=== PATIENT | female | born 1980 | race Two or more races ===

== ENCOUNTER 2023-09-25 17:09 | Inpatient (IN) | payer OTHER ==
[~2023-09-25] VITALS: Ht 162.6 cm; Wt 68.2 kg
[2023-09-25 18:06] LABS: COVID AG,FIA SOURCE NASAL SWAB
[2023-09-25] MEDS ORDERED: LORazepam 2 MG TABLET PO PRN (18:15)
[2023-09-25] MEDS ORDERED: ZOLPIDEM TARTRATE 10 MG TABLET PO PRN (18:15)
[2023-09-25] MEDS ORDERED: HALOPERIDOL 5 MG TABLET PO PRN (18:15)
[2023-09-25 18:18] LABS: BASOPHILS % (AUTO) 1.1 % (0.0-2.0); EOSINOPHILS % (AUTO) 0.3 % (1.0-6.0); HEMATOCRIT 40.5 % (36-46); HEMOGLOBIN 13.9 g/dL (12.0-16.0); LYMPHOCYTES # (AUTO) 1.2 K/uL (1.0-4.8); LYMPHOCYTES % (AUTO) 21.2 % (22.0-44.0); MEAN CORPUSCULAR HEMOGLOBIN 32.3 pg (26.0-34.0); MEAN CORPUSCULAR HGB CONC 34.4 G/dL (31.0-37.0); MEAN CORPUSCULAR VOLUME 94 fL (80-100); MONOCYTES # (AUTO) 0.6 K/uL (0.1-1.0); MONOCYTES % (AUTO) 11.7 % (2.0-9.0); NEUTROPHILS # (AUTO) 3.6 K/uL (1.8-7.7); NEUTROPHILS % (AUTO) 65.7 % (40.0-70.0); PLATELET COUNT (AUTO) 236 K/uL (150-450); RED BLOOD CELL COUNT(AUTO) 4.31 MIL/uL (4.00-5.20); RED CELL DISTRIBUTION WIDTH 14.2 % (11.5-14.5); WHITE BLOOD COUNT (AUTO) 5.5 K/uL (4.5-11.0)
[2023-09-25 18:30] LABS: ANION GAP 15 mmol/L (8-16); CALCIUM, TOTAL 9.2 mg/dL (8.8-10.5); CARBON DIOXIDE 24 mmol/L (22-29); CHLORIDE 108 mmol/L (98-107); CREATININE 0.71 mg/dL (0.60-1.30); GLOMERULAR FILTR. RATE CALC > 60 mL/min (>60); GLUCOSE,RANDOM 108 mg/dL (70-110); SODIUM SERUM 147 mmol/L (136-145); UREA NITROGEN, BLOOD 12 mg/dL (7-18)
[2023-09-25 18:35] LABS: ALANINE AMINOTRANSFERASE 20 U/L (12-78); ALBUMIN 4.2 g/dL (3.4-5.0); ALKALINE PHOSPHATASE 65 U/L (46-116); ASPARTATE AMINOTRANSFERASE 19 U/L (15-37); BILIRUBIN,TOTAL 0.6 mg/dL (0.1-1.0)
[2023-09-25 18:35] LABS: SARS-COV2 (COVID) ANTIGEN,FIA Positive (Negative)
[2023-09-25 19:05] LABS: ALCOHOL, BLOOD (SERUM) < 3 mg/dL (0-10)
[2023-09-25 20:25] VITALS: BP 113/79; PULSE 102; RESP 18; TEMP 98.8
[2023-09-26] MEDS ORDERED: DEXTROSE 5%-0.45% SODIUM CHL 1,000 ML IV ONE (00:15)
[2023-09-26 03:41] VITALS: BP 123/80; PULSE 103; RESP 18; TEMP 97.6
[2023-09-26] MEDS ORDERED: INFLUENZA VIRUS VACCINE QVS 2023-24 (6MO+)/PF 60 MCG/0.5 ML SYRINGE IM. ONE (06:45)
[2023-09-26] MEDS ORDERED: ACETAMINOPHEN 325 MG TABLET PO PRN (07:30)
[2023-09-26] MEDS ORDERED: ZOLPIDEM TARTRATE 5 MG TABLET PO PRN (07:30)
[2023-09-26] MEDS ORDERED: BISACODYL 10 MG RECTAL RECTAL SUPPOSITORY PR PRN (07:30)
[2023-09-26] MEDS ORDERED: MAGNESIUM HYDROXIDE SUSPENSION 30 ML UDCUP PO PRN (07:30)
[2023-09-26] MEDS ORDERED: ONDANSETRON HCL 4 MG/2 ML VIAL IVP PRN (07:30)
[2023-09-26] MEDS: HEPARIN SODIUM,PORCINE 5,000 UNITS/ML VIAL SQ SCH ×3 (08:00→23:48)
[2023-09-26] MEDS: PANTOPRAZOLE SODIUM 40 MG DR TABLET PO SCH (09:00)
[2023-09-26] MEDS: DOCUSATE SODIUM 100 MG CAPSULE PO SCH ×2 (09:00→20:21)
[2023-09-26] MEDS: AZITHROMYCIN 500 MG TABLET PO SCH (10:15)
[2023-09-26 19:40] VITALS: BP 114/69; PULSE 96; RESP 18; TEMP 98.1
[2023-09-26] MEDS: RisperiDONE 1 MG TABLET PO SCH (20:21)
[2023-09-26 20:50] LABS: ALCOHOL, URINE DRUG SCREEN NEGATIVE (NEGATIVE); AMPHET/METH SCREEN,URINE NEGATIVE (NEGATIVE); BARBITURATE SCREEN, URINE NEGATIVE (NEGATIVE); BENZODIAZEPINES SCREEN,URINE NEGATIVE (NEGATIVE); CANNABINOID SCREEN,URINE NEGATIVE (NEGATIVE); COCAINE SCREEN,URINE NEGATIVE (NEGATIVE); METHADONE SCREEN, URINE NEGATIVE (NEGATIVE); OPIATE SCREEN,URINE NEGATIVE (NEGATIVE); PHENCYCLIDINE SCREEN,URINE NEGATIVE (NEGATIVE)
[2023-09-26] MEDS ORDERED: BENZOCAINE/MENTHOL LOZENGE PO PRN (21:45)
[2023-09-27 06:04] VITALS: BP 104/66; PULSE 97; RESP 18; TEMP 97.8
[2023-09-27] MEDS: PANTOPRAZOLE SODIUM 40 MG DR TABLET PO SCH (08:31)
[2023-09-27] MEDS: DOCUSATE SODIUM 100 MG CAPSULE PO SCH ×2 (08:31→21:07)
[2023-09-27] MEDS: AZITHROMYCIN 500 MG TABLET PO SCH (08:31)
[2023-09-27] MEDS: HEPARIN SODIUM,PORCINE 5,000 UNITS/ML VIAL SQ SCH ×3 (08:32→22:59)
[2023-09-27] MEDS: RisperiDONE 1 MG TABLET PO SCH ×2 (08:32→21:07)
[2023-09-27 09:45] VITALS: BP 100/62; PULSE 102; RESP 20; TEMP 98.3
[2023-09-27 16:19] VITALS: BP 101/65; PULSE 94; RESP 20; TEMP 98.1
[2023-09-27 20:30] VITALS: BP 97/58; PULSE 92; RESP 19; TEMP 97
[2023-09-28 04:20] VITALS: BP 103/64; PULSE 79; RESP 20; TEMP 98.1
[2023-09-28] MEDS: HEPARIN SODIUM,PORCINE 5,000 UNITS/ML VIAL SQ SCH ×3 (08:00→23:07)
[2023-09-28] MEDS: AZITHROMYCIN 500 MG TABLET PO SCH ×2 (08:50→08:56)
[2023-09-28] MEDS: DOCUSATE SODIUM 100 MG CAPSULE PO SCH ×3 (08:50→21:00)
[2023-09-28] MEDS: RisperiDONE 1 MG TABLET PO SCH ×2 (08:50→08:56)
[2023-09-28] MEDS: PANTOPRAZOLE SODIUM 40 MG DR TABLET PO SCH ×2 (08:50→08:56)
[2023-09-28] MEDS: LITHIUM CARBONATE 300 MG CAPSULE PO SCH ×2 (11:45→21:00)
[2023-09-28 19:57] VITALS: BP 101/62; PULSE 88; RESP 18; TEMP 98.4
[2023-09-28] MEDS ORDERED: DEXTROSE 5%-0.45% SODIUM CHL 1,000 ML IV ONE (21:00)
[2023-09-28] MEDS: RisperiDONE 3 MG TABLET PO SCH (21:00)
[2023-09-28] MEDS: DIVALPROEX SODIUM 500 MG DR TABLET PO SCH (21:00)
[2023-09-28] MEDS ORDERED: DIVALPROEX SODIUM 500 MG DR TABLET PO SCH (21:00)
[2023-09-29 03:49] VITALS: BP 100/61; PULSE 85; RESP 18; TEMP 98.1
[2023-09-29] MEDS: HEPARIN SODIUM,PORCINE 5,000 UNITS/ML VIAL SQ SCH ×3 (08:00→23:16)
[2023-09-29] MEDS: RisperiDONE 3 MG TABLET PO SCH ×2 (09:00→21:00)
[2023-09-29] MEDS: AZITHROMYCIN 500 MG TABLET PO SCH (09:00)
[2023-09-29] MEDS: PANTOPRAZOLE SODIUM 40 MG DR TABLET PO SCH (09:00)
[2023-09-29] MEDS: LITHIUM CARBONATE 300 MG CAPSULE PO SCH ×2 (09:00→21:00)
[2023-09-29] MEDS: DIVALPROEX SODIUM 500 MG DR TABLET PO SCH ×2 (09:00→21:00)
[2023-09-29] MEDS: DOCUSATE SODIUM 100 MG CAPSULE PO SCH ×2 (09:00→21:00)
[2023-09-30] MEDS: HEPARIN SODIUM,PORCINE 5,000 UNITS/ML VIAL SQ SCH ×2 (08:00→15:20)
[2023-09-30] MEDS: AZITHROMYCIN 500 MG TABLET PO SCH ×2 (09:00→12:03)
[2023-09-30] MEDS: PANTOPRAZOLE SODIUM 40 MG DR TABLET PO SCH (09:00)
[2023-09-30] MEDS: RisperiDONE 3 MG TABLET PO SCH ×3 (09:00→20:10)
[2023-09-30] MEDS: DOCUSATE SODIUM 100 MG CAPSULE PO SCH ×2 (09:00→20:10)
[2023-09-30] MEDS: DIVALPROEX SODIUM 500 MG DR TABLET PO SCH ×3 (09:00→20:10)
[2023-09-30] MEDS: LITHIUM CARBONATE 300 MG CAPSULE PO SCH ×3 (09:00→20:10)
[2023-09-30 13:37] LABS: COVID AG,FIA SOURCE NASAL SWAB
[2023-09-30 14:46] LABS: SARS-COV2 (COVID) ANTIGEN,FIA Negative (Negative)
[2023-09-30 20:20] VITALS: BP 100/66; PULSE 111; RESP 18; TEMP 98
[2023-10-01] MEDS: HEPARIN SODIUM,PORCINE 5,000 UNITS/ML VIAL SQ SCH ×3 (00:02→08:32)
[2023-10-01 06:05] VITALS: BP 113/79; PULSE 100; RESP 18; TEMP 98.3
[2023-10-01 07:14] LABS: LITHIUM 0.36 mmol/L (0.60-1.20)
[2023-10-01] MEDS: DOCUSATE SODIUM 100 MG CAPSULE PO SCH (08:32)
[2023-10-01] MEDS: PANTOPRAZOLE SODIUM 40 MG DR TABLET PO SCH (08:32)
[2023-10-01] MEDS: DIVALPROEX SODIUM 500 MG DR TABLET PO SCH (08:32)
[2023-10-01] MEDS: LITHIUM CARBONATE 300 MG CAPSULE PO SCH (08:34)
[2023-10-01] MEDS: AZITHROMYCIN 500 MG TABLET PO SCH (08:35)
[2023-10-01] MEDS: RisperiDONE 3 MG TABLET PO SCH (08:36)
[2023-10-01 09:14] VITALS: BP 102/62; PULSE 97; RESP 19; TEMP 97.7
== END 2023-10-01 10:00 | DRG 640 ==
LOC: EMS 17:11 → 6N 19:04
PROVIDERS: ADMIT Internal Medicine; ATTEND Internal Medicine
DX: E87.0 Hyperosmolality and hypernatremia (principal); U07.1 COVID-19; F41.9 Anxiety disorder, unspecified; F20.9 Schizophrenia, unspecified; F06.1 Catatonic disorder due to known physiological condition; Z79.899 Other long term (current) drug therapy; Z91.013 Allergy to seafood
CPT/HCPCS: 80053; 80164; 80178; 80307; 85025; 99285; G0480; J1644; Q9967

== ENCOUNTER 2023-09-29 12:03 | Inpatient (IN) | payer OTHER ==
[~2023-09-29] VITALS: Ht 165.1 cm; Wt 58.7 kg
[2023-09-30] MEDS ORDERED: LORazepam 2 MG TABLET PO PRN (13:45)
[2023-09-30] MEDS ORDERED: HALOPERIDOL 5 MG TABLET PO PRN (13:45)
[2023-09-30] MEDS ORDERED: ZOLPIDEM TARTRATE 10 MG TABLET PO PRN (13:45)
[2023-10-01 10:46] VITALS: BP 106/70; PULSE 104; RESP 18; TEMP 97; O2SAT 96
[2023-10-01] MEDS ORDERED: INFLUENZA VIRUS VACCINE QVS 2023-24 (6MO+)/PF 60 MCG/0.5 ML SYRINGE IM. ONE (12:00)
[2023-10-01] MEDS: LITHIUM CARBONATE 300 MG CAPSULE PO SCH ×2 (14:06→17:51)
[2023-10-01] MEDS: DIVALPROEX SODIUM 250 MG DR TABLET PO SCH (17:51)
[2023-10-01] MEDS: RisperiDONE 3 MG TABLET PO SCH (17:51)
[2023-10-01 20:36] VITALS: BP 108/76; PULSE 103; RESP 18; TEMP 97.1
[2023-10-01 22:03] VITALS: BP 108/76; PULSE 100; RESP 18; TEMP 97.1; O2SAT 98
[2023-10-02] MEDS ORDERED: BENZOCAINE/MENTHOL LOZENGE PO PRN (05:30)
[2023-10-02] MEDS ORDERED: LOPERAMIDE HCL 2 MG CAPSULE PO PRN (05:30)
[2023-10-02] MEDS ORDERED: ACETAMINOPHEN 325 MG TABLET PO PRN (05:30)
[2023-10-02] MEDS ORDERED: OMEPRAZOLE 20 MG CAPSULE PO PRN (05:30)
[2023-10-02] MEDS ORDERED: PETROLATUM,WHITE 28 GM JELLY TP PRN (05:30)
[2023-10-02] MEDS ORDERED: MAG HYDROX/ALUMINUM HYD/SIMETH ES 30 ML SUSPENSION UDCUP PO PRN (05:30)
[2023-10-02] MEDS ORDERED: ALBUTEROL SULFATE HFA 90 MCG/PUFF 8 GM INHALER IH PRN (05:30)
[2023-10-02] MEDS ORDERED: DOCUSATE SODIUM 100 MG CAPSULE PO PRN (05:30)
[2023-10-02] MEDS ORDERED: IBUPROFEN 600 MG TABLET PO PRN (05:30)
[2023-10-02] MEDS ORDERED: MAGNESIUM HYDROXIDE SUSPENSION 30 ML UDCUP PO PRN (05:30)
[2023-10-02] MEDS ORDERED: ONDANSETRON HCL 4 MG TABLET PO PRN (05:30)
[2023-10-02] MEDS ORDERED: CloNIDine HCL 0.1 MG TABLET PO PRN (05:30)
[2023-10-02] MEDS ORDERED: BACITRACIN 28 GM OINTMENT TP PRN (05:30)
[2023-10-02] MEDS ORDERED: AZITHROMYCIN 500 MG TABLET PO ONE (09:00)
[2023-10-02] MEDS: RisperiDONE 3 MG TABLET PO SCH ×2 (09:37→16:29)
[2023-10-02] MEDS: LITHIUM CARBONATE 300 MG CAPSULE PO SCH ×3 (09:37→16:29)
[2023-10-02] MEDS: DIVALPROEX SODIUM 250 MG DR TABLET PO SCH ×2 (09:37→16:29)
[2023-10-02 10:35] VITALS: BP 116/76; PULSE 96; RESP 18; TEMP 98.2; O2SAT 98
[2023-10-02 20:58] VITALS: BP 107/66; PULSE 100; RESP 18; TEMP 98.5; O2SAT 97
[2023-10-03] MEDS: LITHIUM CARBONATE 300 MG CAPSULE PO SCH ×3 (09:22→16:51)
[2023-10-03] MEDS: DIVALPROEX SODIUM 250 MG DR TABLET PO SCH ×2 (09:22→16:51)
[2023-10-03] MEDS: RisperiDONE 3 MG TABLET PO SCH ×2 (09:22→16:51)
[2023-10-03 10:25] VITALS: BP 136/70; PULSE 77; RESP 17; TEMP 98.1; O2SAT 97
[2023-10-03 20:49] VITALS: BP 123/66; PULSE 110; RESP 18; TEMP 98.5; O2SAT 99
[2023-10-04 09:05] LABS: LITHIUM 0.61 mmol/L (0.60-1.20)
[2023-10-04] MEDS ORDERED: DIVA-112 PO (09:23)
[2023-10-04] MEDS ORDERED: RISP3TAB63 PO (09:23)
[2023-10-04] MEDS ORDERED: LITH300C3 PO (09:23)
[2023-10-04] MEDS: RisperiDONE 3 MG TABLET PO SCH (09:32)
[2023-10-04] MEDS: DIVALPROEX SODIUM 250 MG DR TABLET PO SCH (09:32)
[2023-10-04] MEDS: LITHIUM CARBONATE 300 MG CAPSULE PO SCH (09:32)
[2023-10-04 10:27] VITALS: BP 122/74; PULSE 103; RESP 18; TEMP 98.3; O2SAT 99
== END 2023-10-04 10:55 | disposition home or self-care (01) | DRG 885 ==
LOC: 3EI 10-01 10:35
PROVIDERS: ADMIT Psychiatry & Neurology Psychiatry; ATTEND Psychiatry & Neurology Psychiatry
DX: F20.9 Schizophrenia, unspecified (principal); F41.9 Anxiety disorder, unspecified; G47.00 Insomnia, unspecified; F32.A Depression, unspecified; K59.00 Constipation, unspecified; Z72.0 Tobacco use
CPT/HCPCS: 80164; 80178; 87081; Q9967